=== PATIENT | male | born 2000 | race Caucasian/White ===

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

== ENCOUNTER 2022-05-16 16:04 | Emergency (ER) | payer BC, SELFPAY ==
[2022-05-16 16:45] VITALS: BP 131/81; PULSE 77; RESP 18; TEMP 36.8; O2SAT 100; BMI 15.8
--- NOTE | 2022-05-16 17:38 | EXP.UTC ---
Discharge Plan Disposition Patient Disposition: Home, Self-Care Condition: Good Prescriptions Prescriptions: New erythromycin 5 mg/gram (0.5 %) ointment 0.5 inch ophthalmic (eye) QID Qty: 3.5 0RF Rx Instructions: apply to left eyelid as directed No Action Zyrtec 10 mg capsule 10 mg PO DAILY PRN lisdexamfetamine 50 mg capsule 50 mg PO DAILY Qty: 30 0RF Referrals Follow up/Referrals: Meri Link PA [Primary Care Provider] - See instructions Activity Restrictions/Add. Instructions Additional Instructions/Restrictions: Warm compresses to eye for 10 minutes 4-5 times day Use ointment as prescribed 4 times daily Follow up with Eye Doctor on Wednesday if no improvement or any worsening of symptoms Return if needed Straight to ER if any life threatening symptoms Gently massage the area with a clean finger to try to get the clogged gland to open and drain. Clinical Impressions Clinical Impression: Stye Qualifiers: Laterality: left Eyelid: upper Qualified Code(s): H00.014 - Hordeolum externum left upper eyelid Instructions Patient Instructions: Hordeolum, DI for Hordeolum, Erythromycin Ophthalmic Discharge ED Provider: Vida Johnson [facility] General Stated complaint: left eye irritation Mode of Arrival: Ambulatory Source of Information: Patient Limitations: No Limitations Time Seen by Provider: 05/16/22 17:38 Description of Symptoms (Recalled from Triage Doc. by RN): PATIENT C/O REDNESS, SWELLING AND PAIN TO LEFT EYE LID SINCE THIS MORNING HEENT Symptoms (Recalled from RN notes): Yes Resp Symptoms (Recalled from RN notes): No Skin Symptoms (Recalled from RN notes): No MS Symptoms (Recalled from RN notes): No Functional Status (Recalled from RN notes): WNL History of Present Illness Provider Complaint: Patient states that he woke up yesterday and his left upper eyelid area felt a little sore State that today it has continued to get more red and swollen and tender to the touch denies injury denies vision changes or problems Related Data Home Medications Medication Instructions Recorded Confirmed cetirizine 10 mg capsule (Zyrtec) 10 mg PO DAILY PRN 02/03/22 04/07/22 Previous Rx's Medication Instructions Recorded lisdexamfetamine 50 mg capsule 50 mg PO DAILY ADHD #30 caps 04/07/22 erythromycin 5 mg/gram (0.5 %) eye 0.5 inch ophthalmic (eye) QID #3.5 05/16/22 ointment grams Allergies Allergy/AdvReac Type Severity Reaction Status Date / Time No Known Allergies Allergy Verified 04/07/22 16:02 Worker's Comp Is this a Worker's Comp case?: No PFSH PFSH Medical History (Updated 05/16/22 @ 17:52 by Vida Johnson APRN) Attention Deficit Hyperactivity Disorder (ADHD) Surgical History (Updated 05/16/22 @ 16:54 by Radha Lopez RN) History of tympanostomy tube placement Social History (Updated 05/16/22 @ 16:55 by Radha Lopez RN) Smoking Status: Never smoker second hand exposure: No alcohol intake: never substance use type: denies use current occupational status: employed Travel in the last 8 weeks: None household members: family housing: house current occupation: electric co helper current occupational exposures/hazards: No caffeine: No ROS Obtained: Yes All systems reviewed & no additional complaints except as documented and Yes Systems reviewed as appropriate & no additional complaints except as documented Constitutional Constitutional: Reports system reviewed and no additional complaints, except as documented and Reports as per HPI Eyes Eyes: Reports system reviewed and no additional complaints, except as documented, Reports as per HPI and Reports other (redness and tenderness to left upper eyelid) Physical Exam General General appearance: alert and in no apparent distress Eye Eye exam: Present other (Swelling, tenderness and redness to left upper eye lid appears like stye) Respiratory Respiratory exam: Present n
[2022-05-16 17:52] VITALS: BP 131/81; PULSE 77; RESP 18; TEMP 36.8; O2SAT 100
== END 2022-05-16 17:55 | disposition home or self-care (01) ==
PROVIDERS: Emergency Provider Nurse Practitioner; PCP Physician Assistant
DX: H00.014 Hordeolum externum left upper eyelid (principal)
CPT/HCPCS: 99212; G0463

== ENCOUNTER → 2022-08-18 15:11 | Outpatient (CLI) | payer BC, SELFPAY ==
[2022-08-18 22:11] LABS: Amphetamine/Metha Screen,Urine Positive ng/ml (<1000)
[2022-08-18 22:12] LABS: Barbiturates Screen,Urine Negative ng/ml (<200)
[2022-08-18 22:13] LABS: Benzodiazepines Screen,Urine Negative ng/ml (<200); Cannabinoid Screen,Urine Negative ng/ml (<50)
[2022-08-18 22:14] LABS: Cocaine Screen,Urine Negative ng/ml (<300)
[2022-08-18 22:15] LABS: Methadone Screen,Urine Negative ng/ml (<300); Opiate Screen,Urine Negative ng/ml (<300)
[2022-08-18 22:16] LABS: Phencyclidine Screen,Urine Negative ng/ml (<25)
== END ==
PROVIDERS: PCP Physician Assistant; Visit Provider Physician Assistant
DX: F90.9 Attention-deficit hyperactivity disorder, unspecified type (principal); Z79.899 Other long term (current) drug therapy
CPT/HCPCS: 80305

== ENCOUNTER 2022-09-05 17:15 | Emergency (ER) | payer BC, SELFPAY ==
[2022-09-05 17:25] VITALS: BP 155/90; PULSE 80; RESP 20; TEMP 36.8; O2SAT 99; BMI 18.8
--- NOTE | 2022-09-05 17:32 | EXP.UTC ---
Discharge Plan Disposition Patient Disposition: Home, Self-Care Condition: Good Prescriptions Prescriptions: New amoxicillin [amoxicillin] 500 mg tablet 500 mg PO BID 10 Days Qty: 20 0RF No Action Zyrtec 10 mg capsule 10 mg PO DAILY PRN lisdexamfetamine 50 mg capsule 50 mg PO DAILY Qty: 30 0RF erythromycin 5 mg/gram (0.5 %) ointment 0.5 inch ophthalmic (eye) QID Qty: 3.5 0RF Rx Instructions: apply to left eyelid as directed Referrals Follow up/Referrals: Meri Link PA [Primary Care Provider] - See instructions Activity Restrictions/Add. Instructions Additional Instructions/Restrictions: Start antibiotic as soon as possible and be sure to take as ordered for full length of time even though he should start feeling better in 24-48 hours. Tylenol or Motrin as needed for pain or fever Encourage fluids, water, Gatorade, Powerade, Pedialyte if /toddler/child Warm compresses often helps when placed over ear Return immediately for new or worsening symptoms no noticeable improvement in 48-72 hours and in 10-14 days to ensure the ears are return to baseline. Follow-up with ENT do not put anything in ear canal wear ear plugs when showering or swimming Clinical Impressions Clinical Impression: Acute otitis media of right ear with perforated tympanic membrane Instructions Patient Instructions: Middle Ear Infection Discharge ED Provider: Paddy ([facility] [facility] [place] General Stated complaint: blood in ear Mode of Arrival: Ambulatory Source of Information: Patient and Parent(s) Limitations: No Limitations Time Seen by Provider: 09/05/22 17:35 Description of Symptoms (Recalled from Triage Doc. by RN): PATIENT C/O rt ear pain with bloody drainage HEENT Symptoms (Recalled from RN notes): Yes Resp Symptoms (Recalled from RN notes): No Skin Symptoms (Recalled from RN notes): No MS Symptoms (Recalled from RN notes): No Functional Status (Recalled from RN notes): WNL History of Present Illness Provider Complaint: 22 yr old male presents for rt ear pain with drainage Related Data Home Medications Medication Instructions Recorded Confirmed cetirizine 10 mg capsule (Zyrtec) 10 mg PO DAILY PRN 02/03/22 08/18/22 Previous Rx's Medication Instructions Recorded erythromycin 5 mg/gram (0.5 %) eye 0.5 inch ophthalmic (eye) QID #3.5 05/16/22 ointment grams lisdexamfetamine 50 mg capsule 50 mg PO DAILY ADHD #30 caps 08/18/22 amoxicillin 500 mg tablet 500 mg PO BID 10 days #20 tabs 09/05/22 Allergies Allergy/AdvReac Type Severity Reaction Status Date / Time No Known Allergies Allergy Verified 06/22/22 15:06 Worker's Comp Is this a Worker's Comp case?: No [facility] Disclaimer: The information contained in this section may have been updated after the patient was seen, as this information can be updated by other users. Medical History (Reviewed 09/05/22 @ 17:36 by Rossy Thomason ([facility]), GATE TECHNICIAN) Attention Deficit Hyperactivity Disorder (ADHD) Surgical History (Reviewed 09/05/22 @ 17:36 by Rossy Thomason ([facility]), GATE TECHNICIAN) History of tympanostomy tube placement Social History (Reviewed 09/05/22 @ 17:36 by Rossy Thomason ([facility]), GATE TECHNICIAN) Smoking Status: Never smoker second hand exposure: No alcohol intake: never substance use type: denies use current occupational status: employed Travel in the last 8 weeks: None household members: family housing: house current occupation: electric co helper current occupational exposures/hazards: No caffeine: No ROS Obtained: Yes All systems reviewed & no additional complaints except as documented Constitutional Constitutional: Reports system reviewed and no additional complaints, except as documented and Reports as per HPI Eyes Eyes: Reports system reviewed and no additional complaints, except as documented and Reports as per HPI ENT Ears, Nose, Mouth, and Throat: Reports system reviewed and no additional compl
[2022-09-05 17:40] VITALS: BP 155/90; PULSE 80; RESP 20; TEMP 36.8; O2SAT 99
== END 2022-09-05 17:44 | disposition home or self-care (01) ==
PROVIDERS: Emergency Provider Nurse Practitioner Family; PCP Physician Assistant
DX: H66.91 Otitis media, unspecified, right ear (principal); H72.91 Unspecified perforation of tympanic membrane, right ear
CPT/HCPCS: 99212; 99213; G0463

== ENCOUNTER 2023-03-01 20:47 | Emergency (ER) | payer BC, SELFPAY ==
[2023-03-01 20:49] VITALS: BP 139/93; PULSE 82; RESP 18; TEMP 36.3; O2SAT 98; BMI 20.2
--- NOTE | 2023-03-01 21:06 | US_ITS ---
PROCEDURE INFORMATION: Exam: US Scrotum Exam date and time: 03/01/23 09:30 PM Age: 22 years old Clinical indication: Flank pain and scrotum pain; Additional info: Right side abd pain TECHNIQUE: Imaging protocol: Real-time ultrasound of the scrotum and contents with color Doppler and image documentation. COMPARISON: CT ABDOMEN PELVIS WO CON 03/01/23 09:27 PM FINDINGS: Right testicle: Normal. No mass. No torsion. Normal vascular flow. Left testicle: Normal. No mass. No torsion. Normal vascular flow. Epididymides: Normal. Scrotum/soft tissues: Left varicocele. IMPRESSION: 1. Left varicocele. 2. No sonographic evidence of testicular torsion.
--- NOTE | 2023-03-01 21:08 | PC.NURSE ---
md at bedside. exam with nurse witness. performing FAST at this time.
--- NOTE | 2023-03-01 21:13 | CT_ITS ---
PROCEDURE INFORMATION: Exam: CT Abdomen And Pelvis Without Contrast Exam date and time: 03/01/23 09:27 PM Age: 22 years old Clinical indication: Other: Right testicle pain; Additional info: Right testicle pain, concern for stone TECHNIQUE: Imaging protocol: Computed tomography of the abdomen and pelvis without contrast. Radiation optimization: All CT scans at this facility use at least one of these dose optimization techniques: automated exposure control; mA and/or kV adjustment per patient size (includes targeted exams where dose is matched to clinical indication); or iterative reconstruction. REPORTING DATA: Count of CT and Cardiac NM exams in prior 12 months: This patient has received 0 known CTs and 0 known cardiac nuclear medicine studies in the 12 months prior to the current study. COMPARISON: No relevant prior studies available. FINDINGS: Tubes, catheters and devices: None noted. Lungs: Lung bases appear clear. Heart: No significant coronary calcifications. No cardiomegaly. No significant pericardial effusion. Liver: Normal. No mass. Gallbladder and bile ducts: Normal. No calcified stones. No ductal dilation. Pancreas: Normal. No ductal dilation. Spleen: Normal. No splenomegaly. Adrenal glands: Normal. No mass. Kidneys and ureters: Tiny calculus 1 mm at the right UVJ. No hydronephrosis. Stomach and bowel: Unremarkable. No obstruction. No mucosal thickening. Appendix: Appendix is well visualized. No evidence of appendicitis. Intraperitoneal space: Unremarkable. No free air. No significant fluid collection. Retroperitoneal space: No significant retroperitoneal inflammatory changes are noted. Vasculature: Unremarkable. No abdominal aortic aneurysm. Lymph nodes: Unremarkable. No enlarged lymph nodes. Urinary bladder: Unremarkable as visualized. Reproductive: Unremarkable as visualized. Bones/joints: Unremarkable. No acute fracture. Soft tissues: Unremarkable. IMPRESSION: Tiny calculus 1 mm at the right UVJ.
[2023-03-01 21:28] LABS: Basophils % 0.5 % (0.1-2.0); Chloride 101 mmol/L (98-107); Eosinophils # 0.1 K/mm3 (0.0-0.4); Eosinophils % 1.7 % (0.1-12.0); Hematocrit 44.6 % (42.0-52.0); Hemoglobin 14.3 g/dL (14.1-18.0); Lymphocytes # 2.4 K/mm3 (0.7-4.5); Lymphocytes % 32.1 % (10-50); Mean Platelet Volume 9.6 fl (7.4-10.4); Monocytes # 0.6 K/mm3 (0.1-1.0); Monocytes % 7.6 % (1.7-9.3); Neutrophils # 4.3 K/mm3 (1.8-7.8); Platelet Count 172 K/mm3 (142-424); Red Blood Count 6.19 M/mm3 (4.60-6.20); Red Cell Distribution Width 13.5 % (11.5-17.5); White Blood Count 7.3 K/mm3 (4.5-13.0)
[2023-03-01 21:29] LABS: Potassium 3.8 mmoL/L (3.5-5.1); Sodium 141 mmol/L (136-145)
[2023-03-01 21:31] LABS: Alanine Aminotransferase 19 U/L (12-78); Aspartate Amino Transferase 23 U/L (17-59); Blood Urea Nitrogen 15 mg/dl (9-20); Creatinine Clearance Estimated 97 mL/min (50-200); Estimated Glomerular Filt Rate 85 ml/min (>60); GFR (African American) 103 ML/MIN (>60)
[2023-03-01 21:32] LABS: Albumin Level 4.8 g/dl (3.5-5.0); Alkaline Phosphatase 52 U/L (38-126); Anion Gap 14.8 mEq/L (5-15); Calcium 10.3 mg/dl (8.4-10.2); Carbon Dioxide 29 mmol/L (22.0-30.0); Globulin 2.4 g/dL (1.3-3.2); Glucose 109 mg/dl (74-100); Total Protein,Serum 7.2 g/dl (6.3-8.2)
--- NOTE | 2023-03-01 21:34 | HMH.EDGENADL ---
Discharge Plan Disposition Patient Disposition: Home, Self-Care Prescriptions Prescriptions: New ibuprofen 800 mg tablet 800 mg PO TID PRN (Reason: pain) 7 Days Qty: 20 0RF hydrocodone-acetaminophen 5-325 mg tablet 1 tab PO Q6H PRN (Reason: pain) 3 Days Qty: 12 0RF tamsulosin [Flomax] 0.4 mg capsule 0.4 mg PO DAILY 7 Days Qty: 7 0RF ondansetron 4 mg tablet,disintegrating 4 mg PO Q6H PRN (Reason: nausea and vomiting) 5 Days Qty: 20 0RF No Action lisdexamfetamine 50 mg capsule 50 mg PO DAILY Qty: 30 0RF Referrals Follow up/Referrals: Meri Link PA [Primary Care Provider] - See instructions Activity Restrictions/Add. Instructions Additional Instructions/Restrictions: Follow-up with urologist if your symptoms do not improve return with any refractory pain nausea vomiting fevers or any other concerns. Clinical Impressions Clinical Impression: Hydronephrosis concurrent with and due to calculi of kidney and ureter, Left varicocele Instructions Patient Instructions: DI for Acute Abdominal Pain Discharge ED Provider: Lisa Zafar General Adult HPI General Chief complaint: Abdominal Pain Stated complaint: pain in upper stomach Time Seen by Provider: 03/01/23 21:02 Mode of Arrival: Ambulatory Source of Information: Patient Limitations: No Limitations Description of Symptoms (Recalled from ER Triage Doc. by RN): Patient reports pain in testicles and right lower quadrant that started 1 hour ago. Reports pain 8/10. History of Present Illness HPI narrative: Patient is a 22-year-old previously healthy male here with sudden right lower quadrant and testicular pain that started 1 hour prior to arrival. States that has been coming and going but has been severe the entire time without complete resolution. Describes it primarily in the right testicle with significant swelling or tenderness in the testicle he states. Has had hematuria in the past actually follow-up with urologist 6 years ago and never had a final diagnosis. No history of definitive stones. No fevers or chills. No trauma. Related Data Previous Rx's Medication Instructions Recorded lisdexamfetamine 50 mg capsule 50 mg PO DAILY ADHD #30 caps 02/03/23 hydrocodone 5 mg-acetaminophen 325 1 tab PO Q6H PRN pain 3 days #12 03/01/23 mg tablet tabs ibuprofen 800 mg tablet 800 mg PO TID PRN pain 7 days #20 03/01/23 tabs ondansetron 4 mg disintegrating 4 mg PO Q6H PRN nausea and 03/01/23 tablet vomiting 5 days #20 tabs tamsulosin 0.4 mg capsule (Flomax) 0.4 mg PO DAILY 7 days #7 caps 03/01/23 Allergies Allergy/AdvReac Type Severity Reaction Status Date / Time No Known Allergies Allergy Verified 02/03/23 15:31 [facility] Disclaimer: The information contained in this section may have been updated after the patient was seen, as this information can be updated by other users. Medical History (Updated 03/01/23 @ 23:05 by Lisa Zafar MD) Acute otitis media of right ear with perforated tympanic membrane Attention Deficit Hyperactivity Disorder (ADHD) Surgical History History of tympanostomy tube placement Social History Smoking Status: Never smoker second hand exposure: No alcohol intake: never substance use type: denies use current occupational status: employed Travel in the last 8 weeks: None household members: family housing: house current occupation: electric co helper current occupational exposures/hazards: No caffeine: No ROS Obtained: Yes All systems reviewed & no additional complaints except as documented Physical Exam General General appearance: in distress and other (Patient shaking and pain) Respiratory Respiratory exam: Present normal lung sounds bilaterally Cardiovascular Cardiovascular exam: Present regular rate Abdominal Exam Abdominal exam: Present soft; Abs
--- NOTE | 2023-03-01 22:04 | PC.NURSE ---
pt arrived back to room from rad
[2023-03-01 22:12] LABS: Microscopic, Urine URINE MICROSCOPIC (MICROSCOPIC)
[2023-03-01 22:15] LABS: Appearance,Urine CLOUDY (Clear); Bilirubin,Urine Negative (Negative); Blood, Urine 2+ (Negative); Color,Urine YELLOW (Yellow); Glucose,Urine (UA) Negative (Negative); Ketones,Urine Negative (Negative); Leukocyte Esterase,Urine Negative (Negative); Nitrate,Urine Negative (Negative); Protein,Urine TRACE (Negative); Specific Gravity, Urine 1.015 (1.005-1.030)
--- NOTE | 2023-03-01 22:57 | PC.NURSE ---
Rounded on patient , no concerns voiced at this time.
[2023-03-01 23:21] VITALS: BP 130/84; PULSE 80; RESP 16; TEMP 36.4; O2SAT 98
== END 2023-03-01 23:27 | disposition home or self-care (01) ==
PROVIDERS: Emergency Provider Student in an Organized Health Care Education/Training Program; PCP Physician Assistant
DX: N13.2 Hydronephrosis with renal and ureteral calculous obstruction (principal); I86.1 Scrotal varices; R10.31 Right lower quadrant pain; F90.9 Attention-deficit hyperactivity disorder, unspecified type
CPT/HCPCS: 74176; 76870; 80053; 81001; 85025; 96361; 96374; 96375; 99285; J2405

== ENCOUNTER → 2023-04-30 09:28 | Outpatient (CLI) | payer BC, SELFPAY ==
--- NOTE | 2023-04-30 09:33 | US_ITS ---
FINAL REPORT TECHNIQUE: Ultrasound images of the kidneys and bladder were obtained. CLINICAL HISTORY: right flank pain COMPARISON: None FINDINGS: The right kidney measures 9.8 cm in length. It is normal in echogenicity. There is no hydronephrosis. The left kidney measures 10 cm in length. It is normal in echogenicity. There is no hydronephrosis. The spleen is unremarkable, measuring 11.3 cm in length. IMPRESSION: Unremarkable renal ultrasound. Specifically no hydronephrosis is identified. Reviewed, Interpreted and Dictated by Juli Torres MD Transcribed by Yomaira Fuller Authenticated and [facility]
--- NOTE | 2023-04-30 15:06 | XR_ITS ---
FINAL REPORT CLINICAL HISTORY: right low back pain FINDINGS: The vertebrae are normal height. Alignment is within normal limits. The disc spaces are preserved. Prevertebral soft tissues are unremarkable. There is no instability with flexion or extension. IMPRESSION: No acute process. Reviewed, Interpreted and Dictated by Juli Torres MD Transcribed by Citlaly Bhatti Authenticated and [facility]
== END ==
PROVIDERS: PCP Physician Assistant; Visit Provider Nurse Practitioner Family
DX: R10.9 Unspecified abdominal pain (principal); M54.50 Low back pain, unspecified
CPT/HCPCS: 72114; 76770

== ENCOUNTER 2023-05-10 15:33 | Emergency (ER) | payer BC, SELFPAY ==
[2023-05-10 16:15] VITALS: BP 102/72; PULSE 81; RESP 20; TEMP 37; O2SAT 96
--- NOTE | 2023-05-10 16:31 | EXP.UTC ---
Discharge Plan Disposition Patient Disposition: Home, Self-Care Condition: Good Prescriptions Prescriptions: No Action lisdexamfetamine 50 mg capsule 50 mg PO DAILY Qty: 30 0RF Referrals Follow up/Referrals: Meri Link PA [Primary Care Provider] - See instructions Activity Restrictions/Add. Instructions Additional Instructions/Restrictions: Straight to ER if pain returns or worsens Follow up with your Family Doctor Return if needed Clinical Impressions Clinical Impression: Abdominal discomfort Stand Alone Forms Stand Alone Forms: Work/School Release Instructions Patient Instructions: DI for Abdominal Pain-Adult Discharge ED Provider: Vida Johnson [facility] [place] HPI General Stated complaint: Abd pain Mode of Arrival: Ambulatory Source of Information: Patient Limitations: No Limitations Time Seen by Provider: 05/10/23 16:31 Description of Symptoms (Recalled from Triage Doc. by RN): PATIENT C/O INTERMITTEN RLQ THAT STARTED TODAY. DENIES NAUSEA, VOMITING OR DIARRHEA HEENT Symptoms (Recalled from RN notes): No Resp Symptoms (Recalled from RN notes): No Skin Symptoms (Recalled from RN notes): No MS Symptoms (Recalled from RN notes): No Functional Status (Recalled from RN notes): WNL History of Present Illness Provider Complaint: Patient states that he has been having pain in his RLQ of abdomen on and off States that earlier today it started hurting and he had to leave work States that after arriving here it stopped and he eat some chips States that he is not hurting right now but just wanted to get checked out Denies nausea, denies vomiting or diarrhea States that he did have a kidney stone about 2 mths ago but he passed it Related Data Previous Rx's Medication Instructions Recorded lisdexamfetamine 50 mg capsule 50 mg PO DAILY ADHD #30 caps 04/14/23 Allergies Allergy/AdvReac Type Severity Reaction Status Date / Time No Known Allergies Allergy Verified 04/29/23 14:29 Worker's Comp Is this a Worker's Comp case?: No [facility] Disclaimer: The information contained in this section may have been updated after the patient was seen, as this information can be updated by other users. Medical History Acute otitis media of right ear with perforated tympanic membrane Attention Deficit Hyperactivity Disorder (ADHD) Surgical History History of tympanostomy tube placement Social History Smoking Status: Never smoker second hand exposure: No alcohol intake: never substance use type: denies use current occupational status: employed Travel in the last 8 weeks: None household members: family housing: house current occupation: electric co helper current occupational exposures/hazards: No caffeine: No ROS Obtained: Yes All systems reviewed & no additional complaints except as documented and Yes Systems reviewed as appropriate & no additional complaints except as documented Constitutional Constitutional: Reports system reviewed and no additional complaints, except as documented and Reports as per HPI Cardiovascular Cardiovascular: Reports system reviewed and no additional complaints, except as documented and Reports as per HPI Respiratory Respiratory: Reports system reviewed and no additional complaints, except as documented and Reports as per HPI Gastrointestinal Gastrointestingal: Reports system reviewed and no additional complaints, except as documented, as per HPI and other (Pain in right lower abdomen earlier no longer having pain now gone); Denies abdominal pain, cramping, diarrhea or nausea Comments: Reports pain in right lower quad on and off today no longer having pain since arrival Genitourinary Male Genitourinary: Reports system reviewed and no additional complaints, except as documented and Reports as per HPI Musculoskeleta
[2023-05-10 16:42] LABS: Microscopic, Urine URINE MICROSCOPIC (MICROSCOPIC)
[2023-05-10 17:24] LABS: Appearance,Urine CLOUDY (Clear); Bilirubin,Urine Negative (Negative); Blood, Urine Negative (Negative); Color,Urine YELLOW (Yellow); Glucose,Urine (UA) Negative (Negative); Ketones,Urine Negative (Negative); Leukocyte Esterase,Urine Negative (Negative); Nitrate,Urine Negative (Negative); Protein,Urine TRACE (Negative)
[2023-05-10 17:38] VITALS: BP 102/72; PULSE 81; RESP 20; TEMP 37; O2SAT 96
[2023-05-10 18:14] LABS: Amorphous Sediment,Urine 1+ /lpf; Bacteria,Urine 2+ /lpf
== END 2023-05-10 17:42 | disposition home or self-care (01) ==
PROVIDERS: Emergency Provider Nurse Practitioner; PCP Physician Assistant
DX: R10.819 Abdominal tenderness, unspecified site; F90.9 Attention-deficit hyperactivity disorder, unspecified type
CPT/HCPCS: 81001; 87086; 99212; 99213; G0463

== ENCOUNTER 2023-09-28 20:42 | Emergency (ER) | payer BC, SELFPAY ==
[2023-09-28 20:45] VITALS: BP 128/72; PULSE 90; RESP 16; TEMP 36.9; O2SAT 100
[2023-09-28 20:58] LABS: Coronavirus 19, PCR Not Detected (NotDetected); Influenza A, PCR Not Detected (NotDetected); Influenza B, PCR Not Detected (NotDetected)
[2023-09-28 21:00] VITALS: BP 141/75; PULSE 77; O2SAT 100
--- NOTE | 2023-09-28 21:00 | HMH.EDGENADL ---
Discharge Plan Disposition Patient Disposition: Home, Self-Care Condition: Good Prescriptions Prescriptions: New ondansetron 4 mg tablet,disintegrating 4 mg PO Q6H PRN (Reason: nausea and vomiting) Qty: 10 0RF No Action lisdexamfetamine 40 mg capsule 40 mg PO DAILY Qty: 30 0RF Referrals Follow up/Referrals: Kimberly Melvin MD [Physician] - See instructions Wilfred Herrera MD [Primary Care Provider] - See instructions Activity Restrictions/Add. Instructions Additional Instructions/Restrictions: Please continue to stay hydrated with noncarbonated beverages. Take Zofran as needed for the nausea. Please use follow-up with PCP if symptoms do not resolve or return to the emergency department for any worsening symptoms or as needed Clinical Impressions Clinical Impression: Enteritis Stand Alone Forms Stand Alone Forms: Work/School Release Discharge ED Provider: Elba Alfaro General Adult HPI <ROSELINE Rivera - Last Filed: 09/28/23 22:25> General Chief complaint: Nausea/Vomiting/Diarrhea Stated complaint: abdominal pain,cough,headache Time Seen by Provider: 09/28/23 21:00 Mode of Arrival: Ambulatory Source of Information: Patient Limitations: No Limitations Description of Symptoms (Recalled from ER Triage Doc. by RN): pt c/o n/v/d chills, [place] that started yesterday. History of Present Illness HPI narrative: Patient presents with a 24-hour history of nausea vomiting diarrhea and abdominal pain. Patient states that the nausea presented first with approximately 12 episodes of nonbilious emesis followed by loose stools yesterday. Patient also began developing diffuse nonspecific abdominal pain. Patient denies fever chills hemoptysis hematochezia melena hematemesis. Patient was not tolerant of oral intake yesterday and has not had anything orally today except Gatorade but it has made him nauseous. Related Data Previous Rx's Medication Instructions Recorded lisdexamfetamine 40 mg capsule 40 mg PO DAILY #30 caps 09/23/23 ondansetron 4 mg disintegrating 4 mg PO Q6H PRN nausea and 09/28/23 tablet vomiting #10 tabs Allergies Allergy/AdvReac Type Severity Reaction Status Date / Time No Known Allergies Allergy Verified 09/23/23 15:55 PFSH <ROSELINE Rivera - Last Filed: 09/28/23 22:25> [facility] Disclaimer: The information contained in this section may have been updated after the patient was seen, as this information can be updated by other users. Medical History Acute otitis media of right ear with perforated tympanic membrane Attention Deficit Hyperactivity Disorder (ADHD) Surgical History History of tympanostomy tube placement Social History Smoking Status: Never smoker second hand exposure: No alcohol intake: never substance use type: denies use current occupational status: employed Travel in the last 8 weeks: None household members: family housing: house current occupation: electric co helper current occupational exposures/hazards: No caffeine: No <ROSELINE Rivera - Last Filed: 09/28/23 22:25> ROS Obtained: Yes Systems reviewed as appropriate & no additional complaints except as documented Physical Exam <ROSELINE Rivera - Last Filed: 09/28/23 22:25> Narrative Physical exam: Patient is a well-nourished well-developed very fit appearing 23-year-old gentleman who otherwise in no acute distress General General appearance: alert and in no apparent distress Head Head exam: atraumatic and normal inspection Eye Eye exam: Present normal appearance, PERRL and EOMI ENT ENT exam: Present normal exam, normal oropharynx and mucous membranes moist Neck Neck exam: Present normal inspection, full ROM and trachea midline; Absent lymphadenopathy Chest Chest inspection: Present normal inspection and symmetric chest wall rise Respiratory Respiratory exam: Present normal lung sounds bilaterally; Absent accessory muscle use Cardiovascular Cardiovascular exam: Present regular rate, normal rhythm, normal heart sounds, +S1 and +S2 Abdominal Exam Abdominal exam: Present soft, tenderness (Patient has diffuse nonspecific abdominal pain to palpation but no rebound or guarding or rigidity. Hyperactive bowel sounds.) and hyperactive bowel sounds; Absent guarding, rebound or rigidity Extremities Exam Extremities exam: Present normal inspection and full ROM Neurological Exam Neurological exam: Present alert and oriented X3 Psychiatric Psychiatric exam: Present normal affect and normal mood Skin Skin exam: Present warm, dry and normal color Medical Decision Making <ROSELINE Rivera - Last Filed: 09/28/23 22:25> Medical Records Medical records reviewed: Yes I reviewed the patient's medical records. Lc Inquiry Pt receiving controlled substance: No Vital Signs: 09/28/23 20:45 09/28/23 21:00 09/28/23 21:30 Temperature 98.4 F Temperature Source Oral Pulse Rate 77 75 Pulse Rate [Right] 90 Respiratory Rate 16 Blood Pressure 141/75 H 109/67 L Blood Pressure [Right Arm] 128/72 Blood Pressure Mean [Right Arm] 90 Blood Pressure Source Blood Pressure Position 02 Sat by Pulse Oximetry 100 100 100 Oxygen Delivery Method 09/28/23 22:00 09/28/23 22:20 09/28/23 22:31 Temperature 98.1 F Temperature Source Oral Pulse Rate 70 69 82 Pulse Rate [Right] Respiratory Rate 19 Blood Pressure 106/62 L 121/62 117/86 Blood Pressure [Right Arm] Blood Pressure Mean [Right Arm] Blood Pressure Source Automatic Cuff Blood Pressure Position Sitting 02 Sat by Pulse Oximetry 96 100 Oxygen Delivery Method Room Air Lab Data Lab results reviewed: Yes I reviewed the patient's lab results. Lab Results 09/28/23 20:50: SARS-CoV-2 (PCR) Not detected, Influenza A Untype (PCR) Not detected, Influenza Type B (PCR) Not detected 09/28/23 21:25: WBC 4.7 L, RBC 5.50, Hgb 13.3 L, Hct 41.8 L, MCV 76.0 L, MCH 24.3 L, MCHC 31.9, RDW 13.7, Plt Count 127 L, MPV 10.7 H, Neut % (Auto) 66.2, Lymph % (Auto) 17.3, [place] % (Auto) 14.2 H, Eos % (Auto) 2.0, Baso % (Auto) 0.3, Neut # (Auto) 3.1, Lymph # (Auto) 0.8, [place] # (Auto) 0.7, Eos # (Auto) 0.1, Baso # (Auto) 0.0, Sodium 138, Potassium 3.8, Chloride 102, Carbon Dioxide 29, Anion Gap 10.8, BUN 20, Creatinine 0.90, Estimated Creat Clear 117, Estimated GFR 107, Est GFR ( Amer) 129, Glucose 96, Calcium 8.9, Total Bilirubin 0.8, AST 22, ALT 16, Alkaline Phosphatase 45, Total Protein 6.4, Albumin 4.3, Globulin 2.1, Albumin/Globulin Ratio 2.0 H 09/28/23 21:25 09/28/23 21:25 Orders (Tests/Meds): ED MEDICATIONS Discontinued Medications Generic Name Dose Route Start Last Admin Trade Name Freq PRN Reason Stop Dose Admin Acetaminophen 1,000 mg 09/28/23 21:04 09/28/23 21:27 Acetaminophen 1,000mg/100ml Vial IV 09/28/23 21:05 1,000 mg ONCE ONE Administration Lactated Ringer's 1,000 mls @ 999 mls/hr 09/28/23 21:04 09/28/23 21:28 Lactated Ringer's 1000 Ml Bag IV 09/28/23 22:04 999 mls/hr .Q1H1M ONE Administration Iopamidol 75 ml 09/28/23 21:39 09/28/23 21:40 Iopamidol-370 (76%);100ml Bottle IV 09/28/23 21:40 75 ml ONCE ONE Administration Ketorolac Tromethamine 15 mg 09/28/23 21:04 09/28/23 21:27 Ketorolac 30mg/Ml Vial IV 09/28/23 21:05 15 mg ONCE ONE Administration Sodium Chloride 10 ml 09/28/23 21:39 09/28/23 21:40 Sodium Chloride 0.9% 10ml Syr (Rad Only) IV 10/28/23 21:38 10 ml NEEDED PRN Administration Maintain IV Site ORDERS Category Date Time Status CT abdomen pelvis w con Stat Cat Scan 09/28/23 21:04 Completed CBC w/Auto Diff [Complete Blood Count Auto Diff] Stat Lab 09/28/23 21:25 Completed CMP [Comprehensive Metabolic Panel] Stat Lab 09/28/23 21:25 Completed Rapid PCR Covid and Flu A/B Stat Lab 09/28/23 20:50 Completed Medical Decision Narrative: In summary patient is a 23-year-old male who presents to the emergency department for evaluation of nausea vomiting diarrhea and abdominal pain. Patient is newly normotensive with stable vital signs upon arrival, and afebrile. Physical exam is remarkable for diffuse mild to moderate abdominal pain on palpation with hyperactive bowel sounds. Differential diagnosis includes gastroenteritis versus appendicitis versus obstruction [facility]. Initial workup will be conducted with hematologic labs CT scan of the abdomen. Initial interventions include crystalloid bolus Toradol acetaminophen. Patient took Zofran just prior to arrival. Initial workup reviewed by me shows a white count with no left shift and the remainder of his laboratory investigations are nonactionable. My informal interpretation of his CT scan of the abdomen pelvis shows no evidence of bowel obstruction shows significantly distended stomach and mildly enlarged bowel loops with no transition point and some wall thickening of the small bowel consistent with a enteritis. Upon repeat evaluation patient had improvement in his abdominal discomfort after administration of the Toradol and acetaminophen. Patient has no further episodes of emesis or diarrhea while in the ER. Patient is able to tolerate p.o. intake prior to discharge. Given this patient is appropriate for discharge with enteritis instructions including staying hydrated with noncarbonated beverages. Patient will get a referral for gastroenterology to evaluate potential causes of gastric dilation including gastroparesis although he is asymptomatic of that at baseline. Via shared decision making patient verbalized understanding and agreement with plan. <Elba Alfaro, DO - Last Filed: 09/28/23 22:58> Vital Signs: 09/28/23 20:45 09/28/23 21:00 09/28/23 21:30 Temperature 98.4 F Temperature Source Oral Pulse Rate 77 75 Pulse Rate [Right] 90 Respiratory Rate 16 Blood Pressure 141/75 H 109/67 L Blood Pressure [Right Arm] 128/72 Blood Pressure Mean [Right Arm] 90 Blood Pressure Source Blood Pressure Position 02 Sat by Pulse Oximetry 100 100 100 Oxygen Delivery Method 09/28/23 22:00 09/28/23 22:20 09/28/23 22:31 Temperature 98.1 F Temperature Source Oral Pulse Rate 70 69 82 Pulse Rate [Right] Respiratory Rate 19 Blood Pressure 106/62 L 121/62 117/86 Blood Pressure [Right Arm] Blood Pressure Mean [Right Arm] Blood Pressure Source Automatic Cuff Blood Pressure Position Sitting 02 Sat by Pulse Oximetry 96 100 Oxygen Delivery Method Room Air Lab Data Lab Results 09/28/23 20:50: SARS-CoV-2 (PCR) Not detected, Influenza A Untype (PCR) Not detected, Influenza Type B (PCR) Not detected 09/28/23 21:25: WBC 4.7 L, RBC 5.50, Hgb 13.3 L, Hct 41.8 L, MCV 76.0 L, MCH 24.3 L, MCHC 31.9, RDW 13.7, Plt Count 127 L, MPV 10.7 H, Neut % (Auto) 66.2, Lymph % (Auto) 17.3, [place] % (Auto) 14.2 H, Eos % (Auto) 2.0, Baso % (Auto) 0.3, Neut # (Auto) 3.1, Lymph # (Auto) 0.8, [place] # (Auto) 0.7, Eos # (Auto) 0.1, Baso # (Auto) 0.0, Sodium 138, Potassium 3.8, Chloride 102, Carbon Dioxide 29, Anion Gap 10.8, BUN 20, Creatinine 0.90, Estimated Creat Clear 117, Estimated GFR 107, Est GFR ( Amer) 129, Glucose 96, Calcium 8.9, Total Bilirubin 0.8, AST 22, ALT 16, Alkaline Phosphatase 45, Total Protein 6.4, Albumin 4.3, Globulin 2.1, Albumin/Globulin Ratio 2.0 H Orders (Tests/Meds): ED MEDICATIONS Discontinued Medications Generic Name Dose Route Start Last Admin Trade Name Freq PRN Reason Stop Dose Admin Acetaminophen 1,000 mg 09/28/23 21:04 09/28/23 21:27 Acetaminophen 1,000mg/100ml Vial IV 09/28/23 21:05 1,000 mg ONCE ONE Administration Lactated Ringer's 1,000 mls @ 999 mls/hr 09/28/23 21:04 09/28/23 21:28 Lactated Ringer's 1000 Ml Bag IV 09/28/23 22:04 999 mls/hr .Q1H1M ONE Administration Iopamidol 75 ml 09/28/23 21:39 09/28/23 21:40 Iopamidol-370 (76%);100ml Bottle IV 09/28/23 21:40 75 ml ONCE ONE Administration Ketorolac Tromethamine 15 mg 09/28/23 21:04 09/28/23 21:27 Ketorolac 30mg/Ml Vial IV 09/28/23 21:05 15 mg ONCE ONE Administration Sodium Chloride 10 ml 09/28/23 21:39 09/28/23 21:40 Sodium Chloride 0.9% 10ml Syr (Rad Only) IV 10/28/23 21:38 10 ml NEEDED PRN Administration Maintain IV Site ORDERS Category Date Time Status CT abdomen pelvis w con Stat Cat Scan 09/28/23 21:04 Completed CBC w/Auto Diff [Complete Blood Count Auto Diff] Stat Lab 09/28/23 21:25 Completed CMP [Comprehensive Metabolic Panel] Stat Lab 09/28/23 21:25 Completed Rapid PCR Covid and Flu A/B Stat Lab 09/28/23 20:50 Completed Medical Decision Narrative: In summary patient is a 23-year-old male who presents to the emergency department for evaluation of nausea vomiting diarrhea and abdominal pain. Patient is newly normotensive with stable vital signs upon arrival, and afebrile. Physical exam is remarkable for diffuse mild to moderate abdominal pain on palpation with hyperactive bowel sounds. Differential diagnosis includes gastroenteritis versus appendicitis versus obstruction [facility]. Initial workup will be conducted with hematologic labs CT scan of the abdomen. Initial interventions include crystalloid bolus Toradol acetaminophen. Patient took Zofran just prior to arrival. Initial workup reviewed by me shows a white count with no left shift and the remainder of his laboratory investigations are nonactionable. My informal interpretation of his CT scan of the abdomen pelvis shows no evidence of bowel obstruction shows significantly distended stomach and mildly enlarged bowel loops with no transition point and some wall thickening of the small bowel consistent with a enteritis. Upon repeat evaluation patient had improvement in his abdominal discomfort after administration of the Toradol and acetaminophen. Patient has no further episodes of emesis or diarrhea while in the ER. Patient is able to tolerate p.o. intake prior to discharge. Given this patient is appropriate for discharge with enteritis instructions including staying hydrated with noncarbonated beverages. Patient will get a referral for gastroenterology to evaluate potential causes of gastric dilation including gastroparesis although he is asymptomatic of that at baseline. Via shared decision making patient verbalized understanding and agreement with plan. I was consulted by the AURELIO, and we discussed the complexity of the problems being addressed. I approved the treatment and management plan for this patient's care in the emergency department, thus performing a substantive portion of the medical decision making. Elba Alfaro, DO Critical Care <ROSELINE Rivera - Last Filed: 09/28/23 22:25> Critical Care Time Critical Care Time: No
--- NOTE | 2023-09-28 21:04 | CT_ITS ---
PROCEDURE INFORMATION: Exam: CT Abdomen And Pelvis With Contrast Exam date and time: 09/28/2023 9:36 PM Age: 23 years old Clinical indication: Abdominal pain; Additional info: Nausea vomiting diarrhea abdominal pain TECHNIQUE: Imaging protocol: Computed tomography of the abdomen and pelvis with contrast. Radiation optimization: All CT scans at this facility use at least one of these dose optimization techniques: automated exposure control; mA and/or kV adjustment per patient size (includes targeted exams where dose is matched to clinical indication); or iterative reconstruction. Contrast material: ISOVUE; Contrast volume: 75 ml; Contrast route: IV; COMPARISON: CT ABDOMEN PELVIS WO CON 03/01/2023 9:27 PM FINDINGS: Liver: Normal. No mass. Gallbladder and bile ducts: Normal. No calcified stones. No ductal dilation. Pancreas: Normal. No ductal dilation. Spleen: Normal. No splenomegaly. Adrenal glands: Normal. No mass. Kidneys and ureters: Normal. No hydronephrosis. Stomach and bowel: Fluid-filled small bowel loops with mild wall thickening in the pelvis. No bowel distension or evidence of obstruction. Mild mesenteric edema. Nonspecific enteritis. Stomach distended with debris, similar to previous examination. Appendix: No evidence of appendicitis. Intraperitoneal space: No pneumoperitoneum. No significant fluid collection. Vasculature: Unremarkable. No abdominal aortic aneurysm. Lymph nodes: Unremarkable. No enlarged lymph nodes. Urinary bladder: Unremarkable as visualized. Reproductive: Unremarkable as visualized. Bones/joints: Unremarkable. No acute fracture. Soft tissues: Unremarkable. IMPRESSION: 1. Fluid-filled small bowel loops with mild wall thickening in the pelvis. No bowel distension or evidence of obstruction. Mild mesenteric edema. Nonspecific enteritis. 2. Stomach distended with debris, similar to previous examination.
[2023-09-28] MEDS: KETOROLAC 30MG/ML VIAL 15 MG IV (21:27)
[2023-09-28] MEDS: ACETAMINOPHEN 1,000MG/100ML VIAL 1000 MG IV (21:27)
[2023-09-28] MEDS: LACTATED RINGERS 1000ML 1,000 ML 999 ML IV (21:28)
[2023-09-28 21:30] VITALS: BP 109/67; PULSE 75; O2SAT 100
[2023-09-28 21:33] LABS: Basophils % 0.3 % (0.1-2.0); Eosinophils # 0.1 K/mm3 (0.0-0.4); Hematocrit 41.8 % (42.0-52.0); Hemoglobin 13.3 g/dL (14.1-18.0); Lymphocytes # 0.8 K/mm3 (0.7-4.5); Lymphocytes % 17.3 % (10-50); Mean Corpuscular HGB Conc 31.9 g/dL (31.8-35.4); Mean Corpuscular Hemoglobin 24.3 pg (27.0-31.2); Mean Platelet Volume 10.7 fl (7.4-10.4); Monocytes # 0.7 K/mm3 (0.1-1.0); Monocytes % 14.2 % (1.7-9.3); Neutrophils # 3.1 K/mm3 (1.8-7.8); Neutrophils % 66.2 % (37.0-80.0); Platelet Count 127 K/mm3 (142-424); Red Cell Distribution Width 13.7 % (11.5-17.5); White Blood Count 4.7 K/mm3 (4.8-10.8)
[2023-09-28 21:40] LABS: Alanine Aminotransferase 16 U/L (12-78); Albumin Level 4.3 g/dl (3.5-5.0); Alkaline Phosphatase 45 U/L (38-126); Anion Gap 10.8 mEq/L (5-15); Aspartate Amino Transferase 22 U/L (17-59); Bilirubin,Total 0.8 mg/dl (0.2-1.3); Blood Urea Nitrogen 20 mg/dl (9-20); Calcium 8.9 mg/dl (8.4-10.2); Carbon Dioxide 29 mmol/L (22.0-30.0); Chloride 102 mmol/L (98-107); Creatinine Clearance Estimated 117 mL/min (50-200); Estimated Glomerular Filt Rate 107 ml/min (>60); GFR (African American) 129 ML/MIN (>60); Globulin 2.1 g/dL (1.3-3.2); Glucose 96 mg/dl (74-100); Potassium 3.8 mmoL/L (3.5-5.1); Sodium 138 mmol/L (136-145); Total Protein,Serum 6.4 g/dl (6.3-8.2)
[2023-09-28] MEDS: IOPAMIDOL-370 (76%);100ML BOTTLE 75 ML IV (21:40)
[2023-09-28] MEDS: SODIUM CHLORIDE 0.9% 10ML SYR (RAD ONLY) 10 ML IV (21:40)
[2023-09-28 22:00] VITALS: BP 106/62; PULSE 70; O2SAT 96
[2023-09-28 22:20] VITALS: BP 121/62; PULSE 69; O2SAT 100
--- NOTE | 2023-09-28 22:20 | PC.NURSE ---
Water provided for PO challenge.
[2023-09-28 22:31] VITALS: BP 117/86; PULSE 82; RESP 19; TEMP 36.7; O2SAT 99
== END 2023-09-28 22:35 | disposition home or self-care (01) ==
PROVIDERS: Physician Assistant; Emergency Provider Emergency Medicine; PCP Family Medicine
DX: K52.9 Noninfective gastroenteritis and colitis, unspecified (principal); R11.2 Nausea with vomiting, unspecified; R10.9 Unspecified abdominal pain
CPT/HCPCS: 74177; 80053; 85025; 87636; 96361; 96374; 96375; 99285; J0131; Q9967

== ENCOUNTER 2023-11-12 11:52 | Emergency (ER) | payer OTHER, SELFPAY ==
[2023-11-12 11:54] VITALS: BP 130/62; PULSE 66; RESP 16; TEMP 36.7; O2SAT 100; BMI 19.3
[2023-11-12 12:01] VITALS: PULSE 72; O2SAT 100
--- NOTE | 2023-11-12 12:21 | HMH.EDGENADL ---
Discharge Plan Disposition Patient Disposition: Home, Self-Care Chief Complaint: Wound/Laceration Prescriptions Prescriptions: No Action lisdexamfetamine 40 mg capsule 40 mg PO DAILY Qty: 30 0RF ondansetron 4 mg tablet,disintegrating 4 mg PO Q6H PRN (Reason: nausea and vomiting) Qty: 10 0RF Referrals Follow up/Referrals: Wilfred Herrera MD [Primary Care Provider] - See instructions Activity Restrictions/Add. Instructions Additional Instructions/Restrictions: Call your family doctor to establish care for this visit to the emergency department and schedule follow-up within 48 hours to ensure improvement. If you have any worsening of your condition or any other concerning signs or symptoms, return to the emergency department or your primary care doctor for further evaluation. Take Tylenol 1000 mg every 6 hours (4 times daily) and ibuprofen 400 mg every 6 hours (4 times daily) as needed with food and water to prevent GI upset and kidney damage. Clinical Impressions Clinical Impression: Finger laceration Qualifiers: Encounter type: initial encounter Finger: index finger Damage to nail status: with damage Foreign body presence: without foreign body Laterality: left Qualified Code(s): S61.311A - Laceration without foreign body of left index finger with damage to nail, initial encounter Instructions Patient Instructions: DI for Laceration Repair Discharge ED Provider: Aamir Gonzalez General Adult HPI General Chief complaint: Wound/Laceration Stated complaint: AO 11/12/23 @ 12:30, cut left pointer finger @ wor Time Seen by Provider: 11/12/23 12:01 Mode of Arrival: Ambulatory Source of Information: Patient Limitations: No Limitations Description of Symptoms (Recalled from ER Triage Doc. by RN): Reports cutting his left index finger on a knife this morning. History of Present Illness HPI narrative: 23-year-old male no relevant medical history fully vaccinated presenting with injury to his left pointer finger. Cut it at work on tape knife. No other injury sustained. Unable to recall when his last tetanus shot was. Hemostatic on arrival. Pain is moderate, does not radiate, made worse with location of pressure. Please note that above description of symptoms, in this electronic medical record under categorization of recalled from ER triage doctor by RN are reflective of an initial nursing assessment, however, is not reflective of my full history and physical exam that was personally taken and clarified. Consequentially, this preceding description of symptoms, which may include the patient's categorized chief complaint in the EMR, do not reflect my personal clinical impression, and the ultimate description of history of present illness and patient stated complaints should be deferred to this section of the note. Unless stated otherwise or congruent with this section of the note, additional signs, symptoms, or incongruence should be interpreted as inaccurate with my clinical impression. Related Data Previous Rx's Medication Instructions Recorded ondansetron 4 mg disintegrating 4 mg PO Q6H PRN nausea and 09/28/23 tablet vomiting #10 tabs lisdexamfetamine 40 mg capsule 40 mg PO DAILY #30 caps 11/04/23 Allergies Allergy/AdvReac Type Severity Reaction Status Date / Time No Known Allergies Allergy Verified 09/23/23 15:55 [facility] Disclaimer: The information contained in this section may have been updated after the patient was seen, as this information can be updated by other users. Medical History Acute otitis media of right ear with perforated tympanic membrane Attention Deficit Hyperactivity Disorder (ADHD) Surgical History History of tympanostomy tube placement Social History Smoking Status: Never smoker second hand exposure: No alcohol intake: never substance use type: denies use current occupational status: employed Travel in the last 8 weeks: None household members: family housing: house current occupation: electric co helper current occupational exposures/hazards: No caffeine: No ROS Obtained: Yes All systems reviewed & no additional complaints except as documented Physical Exam General General appearance: alert and in no apparent distress Head Head exam: atraumatic and normocephalic Eye Eye exam: Present normal appearance, PERRL and EOMI ENT ENT exam: Present mucous membranes moist Neck Neck exam: Present normal inspection, full ROM and trachea midline Respiratory Respiratory exam: Absent respiratory distress, wheezes, stridor, accessory muscle use or prolonged expiratory phase Cardiovascular Cardiovascular exam: Present normal rhythm Abdominal Exam Abdominal exam: Present soft; Absent distention, tenderness, guarding, rebound or rigidity Extremities Exam Extremities exam: Present other (1 cm crescent-shaped laceration to the distal aspect of left pointer finger. Tender. Neurovascularly intact. Clean cut); Absent edema Neurological Exam Neurological exam: Present alert, oriented X3, CN II-XII intact and normal gait; Absent motor sensory deficit Skin Skin exam: Present warm and dry; Absent diaphoresis or erythema Medical Decision Making Medical Records Medical records reviewed: Yes I reviewed the patient's medical records. Lc Inquiry Pt receiving controlled substance: No Lc was queried for this patient: No Vital Signs: 11/12/23 11:54 11/12/23 12:01 11/12/23 12:30 Temperature 98.0 F Temperature Source Oral Pulse Rate 72 55 L Pulse Rate [Radial] 66 Respiratory Rate 16 Blood Pressure 120/71 Blood Pressure [Right Arm] 130/62 Blood Pressure Mean [Right Arm] 84 Blood Pressure Source [Right Arm] Automatic Cuff Blood Pressure Position [Right Arm] Sitting 02 Sat by Pulse Oximetry 100 100 100 Oxygen Delivery Method Room Air 11/12/23 12:32 Temperature Temperature Source Pulse Rate 68 Pulse Rate [Radial] Respiratory Rate Blood Pressure 119/73 Blood Pressure [Right Arm] Blood Pressure Mean [Right Arm] Blood Pressure Source [Right Arm] Blood Pressure Position [Right Arm] 02 Sat by Pulse Oximetry 100 Oxygen Delivery Method Orders (Tests/Meds): ED MEDICATIONS Discontinued Medications Generic Name Dose Route Start Last Admin Trade Name Freq PRN Reason Stop Dose Admin Tetanus/Reduced Diphtheria/Acell Pertussis 0.5 ml 11/12/23 12:21 11/12/23 12:35 Tet/Diphth/Pert-Adult 0.5ml Syringe IM 11/12/23 12:22 0.5 ml .ONCE ONE Administration Medical Decision Narrative: 23-year-old male no relevant medical history fully vaccinated presenting with injury to his left pointer finger. Cut it at work on tape knife. No other injury sustained. Unable to recall when his last tetanus shot was. Hemostatic on arrival. Pain is moderate, does not radiate, made worse with location of pressure. History obtained with patient. On arrival, patient hemodynamically stable and neuro intact. Does have 1 cm C-shaped laceration left pointer finger. Does not involve nailbed. Tender to palpation, but range of motion neurovascularly intact. Patient given lidocaine/epinephrine soaked for finger for tenderness. Laceration repaired with glue. Patient given Tdap. Because patient at baseline without signs or symptoms of clinical decompensation, deemed appropriate for discharge. Results were relayed to patient who voiced understanding and were agreeable to outpatient management and follow up. I discussed my clinical impression with patient and answered all questions. At this time, the evidence for any other entities in the differential is insufficient to warrant any further testing or ED observation. This was explained as well. Advisory was given that persistent or worsening symptoms require further evaluation. I confirmed the understanding of this discussion. Procedures Laceration Laceration 1: Site: finger Side (If applicable): left Description: linear and clean Depth: simple, single layer Local Anesthetic: other anesthetic (topical lido/epi) Amount of anesthesia used (mL): 10 Pre-repair: wound explored and irrigated extensively Skin layer closed with: Dermabond Critical Care Critical Care Time Critical Care Time: No
[2023-11-12 12:30] VITALS: BP 120/71; PULSE 55; O2SAT 100
[2023-11-12 12:32] VITALS: BP 119/73; PULSE 68; O2SAT 100
[2023-11-12] MEDS: TET/DIPHTH/PERT-ADULT 0.5ML SYRINGE 0.5 ML IM (12:35)
[2023-11-12 13:27] VITALS: BP 119/73; PULSE 68; RESP 18; TEMP 36.7; O2SAT 100
== END 2023-11-12 13:28 | disposition home or self-care (01) ==
PROVIDERS: Emergency Provider Emergency Medicine; PCP Family Medicine
DX: S61.311A Laceration without foreign body of left index finger with damage to nail, initial encounter (principal); W26.8XXA Contact with other sharp object(s), not elsewhere classified, initial encounter; Z23 Encounter for immunization
CPT/HCPCS: 12001; 90471; 90715; 99283

== ENCOUNTER 2023-12-21 18:58 | Emergency (ER) | payer BC, SELFPAY ==
[2023-12-21 19:10] VITALS: BP 107/73; PULSE 68; RESP 18; TEMP 36.7; O2SAT 98; BMI 19.2
[2023-12-21 19:19] LABS: Apearance,Urine Clear (Clear); Bilirubin,Urine 1+ (Negative); Blood, Urine 3+ (Negative); Color,Urine Yellow (Yellow); Glucose,Urine (UA) Negative (Negative); Ketones,Urine TRACE (Negative); PH,Urine 6.5 (5.0-8.5); Protein,Urine 3+ (Negative); Specific Gravity, Urine 1.025 (1.005-1.030); Urobilinogen,Urine 1 EU/dl (0.2)
[2023-12-21 19:20] LABS: UTC Leukocyte Esterase,Urine Negative (Negative); UTC Nitrate,Urine Negative (Negative)
--- NOTE | 2023-12-21 19:25 | EXP.UTC ---
Discharge Plan Disposition Patient Disposition: Still a Patient Condition: Good Prescriptions Prescriptions: No Action lisdexamfetamine 40 mg capsule 40 mg PO DAILY Qty: 30 0RF Referrals Follow up/Referrals: Wilfred Herrera MD [Primary Care Provider] - See instructions Discharge ED Provider: Vida Johnson [facility] [place] General Stated complaint: RT side abd pain Mode of Arrival: Ambulatory Source of Information: Patient Limitations: No Limitations Time Seen by Provider: 12/21/23 19:25 Description of Symptoms (Recalled from Triage Doc. by RN): Pt's symptoms right flank pain that radiates to right LQ. He stated it started 3 days ago and has gotten worse. HEENT Symptoms (Recalled from RN notes): No Resp Symptoms (Recalled from RN notes): No Skin Symptoms (Recalled from RN notes): No MS Symptoms (Recalled from RN notes): No Functional Status (Recalled from RN notes): n/a History of Present Illness Provider Complaint: Patient states that he started about 3 days ago he started having pain in his right flank area and on right side States today it progressively worse and earlier brought him to his knees States that the pain feels like it did when he had a kidney stone before so this evening when it wasnt letting up he came in to get checked States pain is a little better now but still persistant Related Data Previous Rx's Medication Instructions Recorded lisdexamfetamine 40 mg capsule 40 mg PO DAILY #30 caps 11/04/23 Allergies Allergy/AdvReac Type Severity Reaction Status Date / Time No Known Allergies Allergy Verified 12/21/23 19:25 Worker's Comp Is this a Worker's Comp case?: No [facility] Disclaimer: The information contained in this section may have been updated after the patient was seen, as this information can be updated by other users. Medical History Acute otitis media of right ear with perforated tympanic membrane Attention Deficit Hyperactivity Disorder (ADHD) Surgical History History of tympanostomy tube placement Social History Smoking Status: Never smoker second hand exposure: No alcohol intake: never substance use type: denies use current occupational status: employed Travel in the last 8 weeks: None household members: family housing: house current occupation: electric co helper current occupational exposures/hazards: No caffeine: No ROS Obtained: Yes All systems reviewed & no additional complaints except as documented and Yes Systems reviewed as appropriate & no additional complaints except as documented Constitutional Constitutional: Reports system reviewed and no additional complaints, except as documented, Reports as per HPI and Denies fever(s) ENT Ears, Nose, Mouth, and Throat: Reports system reviewed and no additional complaints, except as documented and Reports as per HPI Cardiovascular Cardiovascular: Reports system reviewed and no additional complaints, except as documented and Reports as per HPI Respiratory Respiratory: Reports system reviewed and no additional complaints, except as documented and Reports as per HPI Gastrointestinal Gastrointestingal: Reports system reviewed and no additional complaints, except as documented, as per HPI and abdominal pain (right side) Genitourinary Male Genitourinary: Reports system reviewed and no additional complaints, except as documented, Reports as per HPI and Reports flank pain (pain in right flank radiating around to right lower quad) Musculoskeletal Musculoskeletal: Reports system reviewed and no additional complaints, except as documented and Reports as per HPI Physical Exam General General appearance: alert and in no apparent distress Respiratory Respiratory exam: Present normal lung sounds bilaterally; Absent respiratory distress or wheezes Cardiovascular Cardiovascular exam: Present regular rate, normal rhythm and normal heart sounds Neurological Exam Neurological exam: Present alert, oriented X3 and normal gait Medical Decision Making Lc Inquiry Pt receiving controlled substance: No Lc was queried for this patient: No Vital Signs: 12/21/23 19:10 Temperature 98.0 F Temperature Source Oral Pulse Rate [Right Radial] 68 Respiratory Rate 18 Blood Pressure [Right Arm] 107/73 L Blood Pressure Mean [Right Arm] 84 Blood Pressure Source [Right Arm] Automatic Cuff Blood Pressure Position [Right Arm] Sitting 02 Sat by Pulse Oximetry 98 Oxygen Delivery Method Room Air Lab Data Lab results reviewed: Yes I reviewed the patient's lab results. Lab Results 12/21/23 19:18: Urine Color Yellow, Urine Appearance Clear, Urine pH 6.5, Ur Specific [place] 1.025, Urine Protein 3+, Urine Glucose (UA) Negative, Urine Ketones Trace, Urine Blood 3+, Urine Nitrate Negative, Urine Bilirubin 1+ A, Urine Urobilinogen 1, Ur Leukocyte Esterase Negative Orders (Tests/Meds): ORDERS Category Date Time Status Urine Culture Stat Micro 12/21/23 19:18 Ordered Medical Decision Narrative: Patient reports hx of kidney stones States that he started with right flank pain that radiates around his right side to his right lower quad/groin area that has progressively got worse and today pain was more severe so he came in to get checked Discussed with patient and due to symptoms and blood in urine recommended transfer to the ED for further work up and evaluation and he agreed patient was moved to the ED for further work up and evaluation
--- NOTE | 2023-12-21 19:32 | CT_ITS ---
PROCEDURE INFORMATION: Exam: CT Abdomen And Pelvis Without Contrast Exam date and time: 12/21/2023 7:51 PM Age: 23 years old Clinical indication: Pain; Other: Right flank; Additional info: R flank pain TECHNIQUE: Imaging protocol: Computed tomography of the abdomen and pelvis without contrast. Total images: 277 Radiation optimization: All CT scans at this facility use at least one of these dose optimization techniques: automated exposure control; mA and/or kV adjustment per patient size (includes targeted exams where dose is matched to clinical indication); or iterative reconstruction. COMPARISON: CT ABDOMEN PELVIS W CON 09/28/2023 9:36 PM FINDINGS: Lungs: Lung bases are clear. Heart: Normal heart size. Liver: Normal. No mass. Gallbladder and bile ducts: Normal. No calcified stones. No ductal dilation. Pancreas: Normal. No ductal dilation. Spleen: Normal. No splenomegaly. Adrenal glands: Normal. No mass. Kidneys and ureters: No nephrolithiasis, hydronephrosis, or perinephric fluid. No ureteral stones. Slight hyperdensity of the bilateral renal medullary pyramids can be seen with nephrocalcinosis or sequela of dehydration. Stomach and bowel: Unremarkable stomach and duodenum. No ileus or bowel obstruction. Limited bowel wall assessment. Grossly unremarkable small bowel. Unremarkable terminal ileum. Moderate colonic stool burden. No acute colonic inflammatory change. Large rectal stool burden. Appendix: Normal appendix. Intraperitoneal space: Unremarkable. No free air. No significant fluid collection. Vasculature: Abdominal aorta is normal in caliber. Lymph nodes: Unremarkable. No enlarged lymph nodes. Urinary bladder: Collapsed bladder. Reproductive: Nonenlarged prostate. Bones/joints: Unremarkable. No acute fracture. Soft tissues: Unremarkable. IMPRESSION: 1. No acute intra-abdominal or pelvic process. 2. Sequela of constipation including large rectal stool burden. 3. Normal appendix. 4. No nephrolithiasis or hydronephrosis. 5. Slight hyperdensity of the renal medullary pyramids can be seen with nephrocalcinosis or sequela of dehydration. COMMENTS: Consistent with the [employer]'s Incidental Findings Committee white paper (J Am Farida Radiol 2018): Any incidental renal lesion less than 1 cm or classified as too small to characterize, or any incidental cystic renal lesion characterized as simple-appearing, is likely benign. No follow-up imaging is recommended for these lesions per consensus recommendations based on imaging criteria.
[2023-12-21 19:44] VITALS: BP 107/73; PULSE 68; RESP 16; TEMP 36.6; O2SAT 98; BMI 19.2
[2023-12-21] MEDS: ACETAMINOPHEN 1,000MG/100ML VIAL 1000 MG IV (19:48)
[2023-12-21] MEDS: LACTATED RINGERS 1000ML 1,000 ML 999 ML IV (19:48)
[2023-12-21] MEDS: KETOROLAC 30MG/ML VIAL 15 MG IV (19:48)
[2023-12-21 20:00] VITALS: BP 131/86; PULSE 60; O2SAT 100
[2023-12-21 20:00] LABS: Basophils # 0.1 K/mm3 (0-0.2); Basophils % 0.7 % (0.1-2.0); Eosinophils # 0.2 K/mm3 (0.0-0.4); Eosinophils % 2.2 % (0.1-12.0); Hematocrit 41.9 % (42.0-52.0); Hemoglobin 13.5 g/dL (14.1-18.0); Lymphocytes % 24.3 % (10-50); Mean Corpuscular HGB Conc 32.3 g/dL (31.8-35.4); Mean Corpuscular Hemoglobin 24.2 pg (27.0-31.2); Mean Platelet Volume 10.3 fl (7.4-10.4); Monocytes # 0.5 K/mm3 (0.1-1.0); Monocytes % 6.2 % (1.7-9.3); Neutrophils # 5.5 K/mm3 (1.8-7.8); Neutrophils % 66.6 % (37.0-80.0); Platelet Count 164 K/mm3 (142-424); Red Blood Count 5.59 M/mm3 (4.60-6.20); Red Cell Distribution Width 13.9 % (11.5-17.5); White Blood Count 8.3 K/mm3 (4.8-10.8)
--- NOTE | 2023-12-21 20:01 | ED_ITS ---
Discharge Plan Disposition Patient Disposition: Still a Patient Condition: Good Prescriptions Prescriptions: No Action lisdexamfetamine 40 mg capsule 40 mg PO DAILY Qty: 30 0RF Referrals Follow up/Referrals: Wilfred Herrera MD [Primary Care Provider] - See instructions Activity Restrictions/Add. Instructions Additional Instructions/Restrictions: You were evaluated in the emergency department today. You have blood in your urine but no visualized stones on CT scan. It is possible you just passed a stone. You were found to be significantly constipated. For this, I recommend bowel regimen at home including MiraLAX. Since you already have this at home, we did not prescribe any for you. Please follow-up closely with your primary care provider for reassessment. Return to the emergency department for new or worsening symptoms, such as fever, significant worsening of pain, or intractable vomiting. We hope you feel better! Clinical Impressions Clinical Impression: Hematuria, Acute right flank pain, Constipation Stand Alone Forms Stand Alone Forms: Work/School Release Instructions Patient Instructions: DI for Kidney Stones, DI for Constipation Discharge ED Provider: Elba Alfaro General Adult HPI General Chief complaint: Urogenital-Male Stated complaint: RT side abd pain Time Seen by Provider: 12/21/23 19:25 Mode of Arrival: Ambulatory Source of Information: Patient Limitations: No Limitations Description of Symptoms (Recalled from ER Triage Doc. by RN): Pt's symptoms right flank pain that radiates to right LQ. He stated it started 3 days ago and has gotten worse. History of Present Illness HPI narrative: This patient is a 23-year-old male with a history of kidney stones presenting to the emergency department for evaluation with concern for right flank pain that radiates to his groin. This started 3 days ago and is progressively gotten worse. He notes that it feels similar to prior kidney stone. Initially went to urgent treatment center, and [facility] [place] called me to send the patient over here for evaluation with concern for hematuria and right flank pain. No fevers, chills, nausea, vomiting, changes in bowel movements, or other concerns noted. Related Data Previous Rx's Medication Instructions Recorded lisdexamfetamine 40 mg capsule 40 mg PO DAILY #30 caps 11/04/23 Allergies Allergy/AdvReac Type Severity Reaction Status Date / Time No Known Allergies Allergy Verified 12/21/23 19:25 [facility] Disclaimer: The information contained in this section may have been updated after the patient was seen, as this information can be updated by other users. Medical History Acute otitis media of right ear with perforated tympanic membrane Attention Deficit Hyperactivity Disorder (ADHD) Surgical History History of tympanostomy tube placement Social History Smoking Status: Never smoker second hand exposure: No alcohol intake: never substance use type: denies use current occupational status: employed Travel in the last 8 weeks: None household members: family housing: house current occupation: electric co helper current occupational exposures/hazards: No caffeine: No ROS Obtained: Yes All systems reviewed & no additional complaints except as documented Physical Exam General General appearance: alert and in no apparent distress Head Head exam: atraumatic and normocephalic Eye Eye exam: Present normal appearance, PERRL and EOMI ENT ENT exam: Present normal exam, normal oropharynx, mucous membranes moist and normal external ear exam Neck Neck exam: Present normal inspection, full ROM and trachea midline; Absent tenderness Chest Chest inspection: Present normal inspection and symmetric chest wall rise; Absent tenderness Respiratory Respiratory exam: Present normal lung sounds bilaterally; Absent respiratory distress, wheezes, stridor or accessory muscle use Cardiovascular Cardiovascular exam: Present regular rate and normal rhythm Abdominal Exam Abdominal exam: Present soft; Absent distention, tenderness or guarding Extremities Exam Extremities exam: Present normal inspection, full ROM and normal capillary refill; Absent tenderness or edema Back Exam Back exam: Present full ROM and CVA tenderness (R); Absent CVA tenderness (L) Neurological Exam Neurological exam: Present alert, oriented X3, CN II-XII intact and normal gait; Absent motor sensory deficit Psychiatric Psychiatric exam: Present normal affect and normal mood Skin Skin exam: Present warm and dry Medical Decision Making Medical Records Medical records reviewed: Yes I reviewed the patient's medical records. Lc Inquiry Pt receiving controlled substance: No Vital Signs: 12/21/23 19:10 12/21/23 19:44 12/21/23 20:00 Temperature 98.0 F 98 F Temperature Source Oral Oral Pulse Rate 60 Pulse Rate [Right Radial] 68 68 Respiratory Rate 18 16 Blood Pressure 131/86 Blood Pressure [Right Arm] 107/73 L 107/73 L Blood Pressure Mean [Right Arm] 84 84 Blood Pressure Source Blood Pressure Source [Right Arm] Automatic Cuff Blood Pressure Position Blood Pressure Position [Right Arm] Sitting 02 Sat by Pulse Oximetry 98 98 100 Oxygen Delivery Method Room Air 12/21/23 21:17 Temperature 98.7 F Temperature Source Oral Pulse Rate 56 L Pulse Rate [Right Radial] Respiratory Rate 16 Blood Pressure 128/75 Blood Pressure [Right Arm] Blood Pressure Mean [Right Arm] Blood Pressure Source Automatic Cuff Blood Pressure Source [Right Arm] Blood Pressure Position Sitting Blood Pressure Position [Right Arm] 02 Sat by Pulse Oximetry Oxygen Delivery Method Room Air Lab Data Lab results reviewed: Yes I reviewed the patient's lab results. Lab Results 12/21/23 19:08: Urine Color Yellow, Urine Appearance Clear, Urine pH 6.5, Ur Specific [place] 1.025, Urine Protein Negative, Urine Glucose (UA) Negative, Urine Ketones Negative, Urine Blood 3+, Urine Nitrate Negative, Urine Bilirubin Negative, Urine Urobilinogen 1.0, Ur Leukocyte Esterase Negative, Urine RBC 20- 50, Urine WBC None, Ur Squamous Epith Cells Occasional, Urine Bacteria Trace 12/21/23 19:18: Urine Color Yellow, Urine Appearance Clear, Urine pH 6.5, Ur Specific [place] 1.025, Urine Protein 3+, Urine Glucose (UA) Negative, Urine Ketones Trace, Urine Blood 3+, Urine Nitrate Negative, Urine Bilirubin 1+ A, Urine Urobilinogen 1, Ur Leukocyte Esterase Negative 12/21/23 19:20: WBC 8.3, RBC 5.59, Hgb 13.5 L, Hct 41.9 L, MCV 75.0 L, MCH 24.2 L, MCHC 32.3, RDW 13.9, Plt Count 164, MPV 10.3, Neut % (Auto) 66.6, Lymph % (Auto) 24.3, [place] % (Auto) 6.2, Eos % (Auto) 2.2, Baso % (Auto) 0.7, Neut # (Auto) 5.5, Lymph # (Auto) 2.0, [place] # (Auto) 0.5, Eos # (Auto) 0.2, Baso # (Auto) 0.1, Sodium 141, Potassium 3.8, Chloride 105, Carbon Dioxide 26, Anion Gap 13.8, BUN 16, Creatinine 0.90, Estimated Creat Clear 115, Estimated GFR 107, Est GFR ( Amer) 129, Glucose 94, Calcium 9.9, Total Bilirubin 0.8, AST 28, ALT 20, Alkaline Phosphatase 56, Total Protein 7.3, Albumin 4.8, Globulin 2.5, Albumin/Globulin Ratio 1.9 H 12/21/23 19:20 12/21/23 19:20 Orders (Tests/Meds): ED MEDICATIONS Discontinued Medications Generic Name Dose Route Start Last Admin Trade Name Freq PRN Reason Stop Dose Admin Acetaminophen 1,000 mg 12/21/23 19:32 12/21/23 19:48 Acetaminophen 1,000mg/100ml Vial IV 12/21/23 19:33 1,000 mg ONCE ONE Administration Lactated Ringer's 1,000 mls @ 999 mls/hr 12/21/23 19:32 12/21/23 19:48 Lactated Ringer's 1000 Ml Bag IV 12/21/23 20:32 999 mls/hr .Q1H1M ONE Administration Ketorolac Tromethamine 15 mg 12/21/23 19:32 12/21/23 19:48 Ketorolac 30mg/Ml Vial IV 12/21/23 19:33 15 mg ONCE ONE Administration ORDERS Category Date Time Status CT abdomen pelvis wo con Stat Cat Scan 12/21/23 19:32 Completed Complete Blood Count Auto Diff Stat Lab 12/21/23 19:20 Completed Comprehensive Metabolic Panel Stat Lab 12/21/23 19:20 Completed Urinalysis and Microscopic Stat Lab 12/21/23 19:08 Completed Urine Culture Stat Micro 12/21/23 19:08 Received Medical Decision Narrative: In summary, this patient is a 23-year-old male presenting to the Emergency Department for evaluation of right flank pain. Differential diagnoses considered include but are not limited to pyelonephritis, cystitis, ureterolithiasis, DARLENE. Ruling out the most morbid conditions drove assessment. On exam, the patient is well-appearing with normal vital signs. He has had no fevers or infectious symptoms. Workup included CBC, CMP, urinalysis, and CT abdomen and pelvis without IV contrast. He was given a bolus of IV fluids as well as IV Toradol and acetaminophen for symptomatic improvement. I independently interpreted CT scan prior to the radiologist read and noted significant constipation. Please see their read for final interpretation. Labs were obtained that demonstrated hematuria with normal kidney function and no significant leukocytosis. I do not visualize a stone on CT scan, and radiology does not comment on any stone. Given his hematuria and pain, it is possible he could have passed a stone. He was pain-free on reassessment. On reassessment, patient had good improvement after administration of images above and is pain-free. It is possible he passed a stone given that 1 is not visualized on CT. He does have significant constipation, and he states that he already has medications at home for this and denies need for prescriptions.. At this time, patient was deemed to be appropriate for discharge home with instructions for supportive management of constipation and strict return precautions. Patient was discharged after all questions were answered.. Critical Care Critical Care Time Critical Care Time: No
[2023-12-21 20:07] LABS: Chloride 105 mmol/L (98-107)
[2023-12-21 20:08] LABS: Potassium 3.8 mmoL/L (3.5-5.1); Sodium 141 mmol/L (136-145)
[2023-12-21 20:10] LABS: Blood Urea Nitrogen 16 mg/dl (9-20); Creatinine Clearance Estimated 115 mL/min (50-200); Estimated Glomerular Filt Rate 107 ml/min (>60); GFR (African American) 129 ML/MIN (>60)
[2023-12-21 20:11] LABS: Alanine Aminotransferase 20 U/L (12-78); Albumin Level 4.8 g/dl (3.5-5.0); Albumin/Globulin Ratio 1.9 (1.1-1.8); Alkaline Phosphatase 56 U/L (38-126); Anion Gap 13.8 mEq/L (5-15); Aspartate Amino Transferase 28 U/L (17-59); Bilirubin,Total 0.8 mg/dl (0.2-1.3); Calcium 9.9 mg/dl (8.4-10.2); Carbon Dioxide 26 mmol/L (22.0-30.0); Globulin 2.5 g/dL (1.3-3.2); Glucose 94 mg/dl (74-100); Total Protein,Serum 7.3 g/dl (6.3-8.2)
[2023-12-21 20:12] LABS: Microscopic, Urine URINE MICROSCOPIC (MICROSCOPIC)
[2023-12-21 20:14] LABS: Appearance,Urine CLEAR (Clear); Bilirubin,Urine Negative (Negative); Blood, Urine 3+ (Negative); Color,Urine YELLOW (Yellow); Glucose,Urine (UA) Negative (Negative); Ketones,Urine Negative (Negative); Leukocyte Esterase,Urine Negative (Negative); Nitrate,Urine Negative (Negative); PH,Urine 6.5 (5.0-8.5); Protein,Urine Negative (Negative); Specific Gravity, Urine 1.025 (1.005-1.030)
[2023-12-21 20:44] LABS: Bacteria,Urine Trace /lpf; RBC,Urine 20-50 #/hpf (0-3); Squamous Epithelial Cell,Urine Occasional #/hpf (0-5)
[2023-12-21 21:17] VITALS: BP 128/75; PULSE 56; RESP 16; TEMP 37.1; O2SAT 100
== END 2023-12-21 21:22 | disposition home or self-care (01) ==
LOC: UTC 19:32 → ER 19:34
PROVIDERS: Nurse Practitioner; Emergency Provider Emergency Medicine; PCP Family Medicine
DX: R10.31 Right lower quadrant pain (principal); R31.9 Hematuria, unspecified; K59.00 Constipation, unspecified; Z87.442 Personal history of urinary calculi
CPT/HCPCS: 74176; 80053; 81001; 81003; 85025; 87086; 96361; 96374; 96375; 99284; J0131

== ENCOUNTER 2024-11-08 19:44 | Emergency (ER) | payer BC, SELFPAY ==
[2024-11-08 20:19] VITALS: BP 156/89; PULSE 72; RESP 20; TEMP 36.7; O2SAT 100; BMI 21.5
[2024-11-08 20:30] VITALS: BP 129/76; PULSE 72; O2SAT 100
[2024-11-08 21:00] VITALS: BP 149/74; PULSE 85; RESP 16; O2SAT 99
--- NOTE | 2024-11-08 21:11 | [facility].EDGENADL ---
Discharge Plan Disposition Patient Disposition: Home, Self-Care Referrals Follow up/Referrals: Wilfred Herrera MD [Primary Care Provider] - See instructions Activity Restrictions/Add. Instructions Additional Instructions/Restrictions: Call your family doctor to establish care for this visit to the emergency department and schedule follow-up within 48 hours to ensure improvement. If you have any worsening of your condition or any other concerning signs or symptoms, return to the emergency department or your primary care doctor for further evaluation. Antibiotic ointment 3 times daily for [address] Rai is local if you continue having discomfort, call his office for further evaluation. Clinical Impressions Clinical Impression: Foreign body sensation, right eye Print Language Print Language: Singaporean Discharge ED Provider: Aamir Gonzalez General Adult HPI General Chief complaint: Eye Problems Stated complaint: right eye pain something in eye Time Seen by Provider: 11/08/24 20:27 Mode of Arrival: Ambulatory Description of Symptoms (Recalled from ER Triage Doc. by RN): pt comes in complaining of irritation of the right eye. Eye is reddened and slightly swollen. Pt states he thinks he got something stuck in it at work from 'crawling under a shed'. Symptoms started at 1600 when pt got of work. History of Present Illness HPI narrative: Please note that above description of symptoms, in this electronic medical record under categorization of recalled from ER triage doctor by RN are reflective of an initial nursing assessment, however, is not reflective of my full history and physical exam that was personally taken and clarified. Consequentially, this preceding description of symptoms, which may include the patient's categorized chief complaint in the EMR, do not reflect my personal clinical impression, and the ultimate description of history of present illness and patient stated complaints should be deferred to this section of the note. Unless stated otherwise or congruent with this section of the note, additional signs, symptoms, or incongruence should be interpreted as inaccurate with my clinical impression. Related Data Allergies Allergy/AdvReac Type Severity Reaction Status Date / Time No Known Allergies Allergy Verified 11/08/24 19:20 [facility] Disclaimer: The information contained in this section may have been updated after the patient was seen, as this information can be updated by other users. Medical History Acute otitis media of right ear with perforated tympanic membrane Attention Deficit Hyperactivity Disorder (ADHD) Surgical History History of tympanostomy tube placement Social History Smoking Status: Never smoker second hand exposure: No alcohol intake: never substance use type: denies use current occupational status: employed Travel in the last 8 weeks: None household members: family housing: house current occupation: electric co helper current occupational exposures/hazards: No caffeine: No Have you lived/traveled outside [place] in past 30 days?: No Contact w/someone who lives/traveled outside [place] past 30 days?: No Exposure to someone with infectious disease in past 14 days?: No Do you have a fever (greater than 100.4 F or 38 C)?: No Have you tested positive for COVID-19: No Exposed to someone with COVID-19 in past 14 days?: No Do you have a sore throat?: No Do you have a cough?: No Do you have any weakness?: No Do you have any diarrhea?: No Are you experiencing any unusual bleeding?: No Do you have any muscle aches/pain?: No Do you have any abdominal pain?: No Are you experiencing loss of taste or smell?: No Other Medical History Have you received the Flu Vaccine for this season: No Have you received the Pneumonia Vaccine: No ROS Obtained: Yes All systems reviewed & no additional complaints except as documented Physical Exam General General appearance: alert Head Head exam: atraumatic and normocephalic Eye Eye exam: Present PERRL, EOMI and conjunctival redness (Per MDM) Neck Neck exam: Present normal inspection, full ROM and trachea midline Respiratory Respiratory exam: Absent respiratory distress, wheezes, stridor, accessory muscle use or prolonged expiratory phase Cardiovascular Cardiovascular exam: Present other (Pulses equal symmetric in upper and lower extremities) Abdominal Exam Abdominal exam: Present soft; Absent distention, tenderness or pulsatile mass Extremities Exam Extremities exam: Absent edema Neurological Exam Neurological exam: Present alert, oriented X3 and CN II-XII intact; Absent motor sensory deficit Skin Skin exam: Present warm and dry; Absent diaphoresis or erythema Medical Decision Making Medical Records Medical records reviewed: Yes I reviewed the patient's medical records. Screening: Per USPSTF and CDC recommendations, given the prevalence of disease in our region, it is our hospital?s policy to screen for HIV and viral Hepatitis for all patients aged 18 and over and those with ongoing risk factors. Lc Inquiry Pt receiving controlled substance: No Lc was queried for this patient: No Vital Signs: 11/08/24 20:19 11/08/24 20:30 11/08/24 21:00 Temperature 98.1 F Temperature Source Oral Pulse Rate 72 85 Pulse Rate [Left] 72 Respiratory Rate 20 16 Blood Pressure 129/76 149/74 H Blood Pressure [Right Arm] 156/89 H Blood Pressure Mean 93 Blood Pressure Mean [Right Arm] 111 Blood Pressure Source [Right Arm] Automatic Cuff 02 Sat by Pulse Oximetry 100 100 99 Oxygen Delivery Method Room Air Room Air Orders (Tests/Meds): ORDERS Category Date Time Status HIV Combo Routine Lab 11/08/24 20:33 Ordered Hepatitis C Ab Qual. W/ RFX Routine Lab 11/08/24 20:33 Ordered Medical Decision Narrative: This is a 24-year-old male presenting with concern for foreign body sensation in his right eye. Patient states he was working today, feels of a piece of wood is in his eye. Last tetanus shot was a year ago. Vision is normal, some tenderness and itchiness to his right eye. History obtained with patient. On arrival, he does have conjunctival injection on the right. Tetracaine administered. Complete resolution of symptoms. Patient's visual acuity intact, per report. No evidence of hyphema, proptosis, entrapment, conjunctival hemorrhage, pupillary changes, cellulitic change, obvious foreign body, or otherwise irregular ocular findings. Fluorescein staining without focal uptake. Patient was given erythromycin ointment and discharged in stable condition. Fitter Type Bar And Segment disclaimer Much of this encounter note is an electronic landcare facilitator spoken language to printed text. Electronic landcare facilitator of the spoken language may permit errors. Although I have reviewed the note, some errors may still exist. Critical Care Critical Care Time Critical Care Time: No
[2024-11-08] MEDS: FLUORESCEIN SODIUM 1MG STRIP 1 MG OP (21:42)
[2024-11-08 21:46] VITALS: BP 136/87; PULSE 79; RESP 20; TEMP 36.7; O2SAT 98
== END 2024-11-08 21:47 | disposition home or self-care (01) ==
PROVIDERS: Emergency Provider Emergency Medicine; PCP Family Medicine
DX: H57.11 Ocular pain, right eye (principal); H57.8A1 Foreign body sensation, right eye
CPT/HCPCS: 99283